=== PATIENT | male | born 1965 | race Caucasian/White ===

== ENCOUNTER 2025-05-06 18:57 | Inpatient (IN) | payer OTHER, SELFPAY ==
[2025-05-06 14:56] VITALS: BP 128/102
[2025-05-06 14:58] VITALS: BP 128/102
[2025-05-06 15:00] VITALS: BP 127/88
[2025-05-06 15:13] LABS: % Basophils 0.5 % (0-2); % Eosinophils 5.6 % (0-6); % Immature Granulocytes 0.3 % (0-0.5); % Lymphocytes 21.6 % (20.5-51.1); % Monocytes 8.2 % (1.7-9.3); % Neutrophils 63.8 % (42.2-75.2); Absolute Eosinophils 0.4 10^3/uL (0-0.7); Absolute Lymphocytes 1.3 10^3/uL (1.2-3.4); Absolute Monocytes 0.5 10^3/uL (0.1-0.6); Hematocrit 47.6 % (39.0-52.0); Mean Corp Hgb Conc. 33.6 g/dL (33.0-37.0); Mean Corpuscular Hgb 29.5 pg (27.0-31.0); Mean Corpuscular Volume 87.8 fL (80.0-94.0); Mean Platelet Volume 8.5 fL (7.4-10.4); Nucleated Red Blood Cells % 0 % (-); Platelet Count 204 10^3/uL (130-400); Red Blood Cell Count 5.42 10^6/uL (4.70-6.10); Red Cell Dist. Width 12.9 % (11.5-14.5); White Blood Cell Count 6.2 10^3/uL (4.8-10.8)
[2025-05-06 15:26] LABS: ALT (SGPT) 35 U/L (0-50); AST (SGOT) 30 U/L (17-59); Albumin 4.4 g/dl (3.5-5.0); Alkaline Phosphatase 56 U/L (38-126); Blood Urea Nitrogen 13 mg/dl (9-20); Calcium 9.6 mg/dl (8.4-10.2); Carbon Dioxide 27 mmol/L (22-30); Chloride 108 mmol/L (98-107); Glucose 86 mg/dl (70-99); Potassium 4.7 mmol/L (3.5-5.1); Sodium 140 mmol/L (135-145); eGFR > 60.00
[2025-05-06 16:00] VITALS: BP 124/87
--- NOTE | 2025-05-06 16:59 | ED.GENMED ---
History of Present Illness
General
Chief Complaint: Bowel Problem
Source: spouse
Exam Limitations: dementia
Time Seen by Provider: 05/06/25 15:17
Nursing documentation reviewed up to this point in time: agreed with
History of Present Illness
History of Present Illness:
The patient is a 6-year-old man with past medical history of early Alzheimer's dementia brought in by his for rectal bleed. His reports that he has a history of Crohn disease and generally has a loose bowel movement each and every day.
She reports that over the last 4 days, he has had no bowel movement. She reports occasionally he has been holding his abdomen to indicate he has abdominal pain but it has been difficult for her to fully assess him due to his dementia. She reports
that earlier today, he filled the toilet with bright red blood and when she wiped him, there was blood on the toilet tissue. She reports this is never happened before. The only changes that she notes is that he was recently started on psychiatric
medication to control his agitation. She denies fever, vomiting and recent travel history.
Past History
Past History
ED Past Medical History: Other (Early onset dementia, Crohn's disease)
ED Past Surgical History: Bowel resection
Social History
Tobacco: Non-smoker
Alcohol: Occasional
Drug: None
Personal:
Living: with family
Employment: Other
Family History
Family History: Other
Review of Systems
Review of Systems
Allergies reviewed?: Yes
Unable to obtain full review of systems at this time due to: dementia
Other source history: family
All Other Systems: Not applicable
ABD/GI: Reports constipated and other (Rectal bleed)
Phy Exam
Physical Exam
Physical Exam:
Physical Exam
General: no apparent distress, not acutely ill
Neck: supple. no meningeal signs. normal psoterior pharynx
Heart: s1/s2 regular rate and rhythm, no murmur. equal radial pulses.
Lungs: no acute respiratory distress. clear bilaterally
Abdomen: normal bowel sounds. not tender. no CVAT . Small amount of active bright red rectal bleed. No sign of external hemorrhoid
Neuro: alert, nonfocal
Skin: no rash
Psychiatric: well kept. Barely interactive, cooperative
Extremities: no edema. no calf tenderness. negative homans. good distal pulses
Course
Orders/Labs/Results
Orders:
Orders
05/06/25 15:05
Type+Screen Urgent
Complete Blood Count/With Diff Urgent
Comprehensive Metabolic Panel Urgent
05/06/25 16:12
CT Abd/pelvis W Iv Cont Urgent
Comment:
Reason For Exam: rectal bleed, constipation, chrons
05/06/25 17:08
ABO2 Routine
BBK Wristband Number:
Associate notified that ABO2 has been ordered: Y
Date: 05/06/25
Time: 15:24
Canvas Repairer ID: [id number]
Abnormal Lab Results
05/06/25
15:05
Chloride 108 H mmol/L
(98-107)
Total Bilirubin 3.0 H mg/dl
(0.2-1.3)
05/06/25 15:05
05/06/25 15:05
Vital Signs
Initial and Last Documented VS:
Initial Vital Signs
Temp Pulse Resp BP Pulse Ox
98.2 F 60 20 128/102 98
05/06/25 14:56 05/06/25 14:56 05/06/25 14:56 05/06/25 14:56 05/06/25 14:56
Last Documented Vital Signs
Temp Pulse Resp BP Pulse Ox
98.2 F 55 12 124/87 96
05/06/25 14:56 05/06/25 16:15 05/06/25 16:00 05/06/25 16:00 05/06/25 16:15
MDM/Problems Addressed
Differential Diagnosis Includes:
Acute diverticulitis, acute flare of Crohn's, internal hemorrhoid, external hemorrhoid, AV malformation
MDM/Problems Addressed:
Patient presents with acute constipation and rectal bleed
Chronic conditions affecting care:
Crohn's disease
Acute Exacerbation and/or Progression of Chronic Illness:
Patient may have acute flare of chronic Crohn's
*Radiology
Radiology exam reviewed: radiology read reviewed
*Pulse Oximetry
Patient hypoxic: no
Comment: 98% on room air
*EKG
Interpreted by ED Provider?: NA
*Recreational Programs Director Interpretation
Rate: Recreational Programs Director- N/A
*Critical Care Note
Total Time (30-74mins, 75-104mins- exclusive of procedures): Not Applicable
Data Reviewed
Review of Other/Old Records Reveals: Progress Notes (Speech therapy note reviewed from 2020 which indicates that patient at that time had mild cognitive impairment)
Source: spouse
Patient Management
Social determinants of health affecting care: Living situation and Strong social support
Discussion with other providers: Hospitalist and Other (CT report and case discussed with Dr. Paredes from GI)
Escalation/DeEscalation of care consider admission/obs:
Patient is hemodynamically stable. Patient's expresses that she is very hesitant to take him home given his severe dementia and ongoing rectal bleeding. I feel is important therefore, for patient to have a diagnostic and therapeutic workup in
the hospital. reports it is extremely challenging to get him to outpatient appointments
ED Attending Note
-
Portions of this chart may have been created with voice recognition software.� Occasional wrong word or��sound alike� substitutions may have occurred due to the inherent limitations of voice recognition software.
Discharge Plan
Departure
Patient Disposition: Admit
Date of Disposition: 05/06/25
Time of Disposition: 18:00
Admit to: Med/Surg
Presentation/result/management discussed w/ accepting MD/DO: Hospitalist
Patient with high blood pressure during this ER visit?: No
Condition: Good
Discharge Problem:
Bright red rectal bleeding
Referrals:
Carolyn Patrick PA-C [Family Provider, Family Practice]
Interventions
Interventions:
*Risk Screen - Suicide Last Done: 05/06/25 15:28
*General Assessment Last Done: 05/06/25 15:28
*Neglect/Abuse Screening Last Done: 05/06/25 15:28
*ED- Fall Risk Assessment Last Done: 05/06/25 15:28
*ED COVID-19 Vaccine History Last Done: 05/06/25 15:28
XS-Aqmrql-Nfezqluilz Assessment Last Done: 05/06/25 15:28
Discharge Date and Time
Print Language: SAO TOMEAN
[2025-05-06 17:10] VITALS: BP 124/88
--- NOTE | 2025-05-06 18:19 | HPS.HSE ---
Family Physician
-
Family Physician: Carolyn Patrick
Chief Complaint
-
rectal bleeding
History of Present Illness
60-year-old male past medical history of Alzheimer's dementia, Crohn's disease presenting with rectal bleeding. His reports she has a history of Crohn's disease and takes cholestyramine for loose stools.
A few days ago he had severe watery diarrhea. This was followed by several days of constipation and minimal stool. Today he had moderate amount of bleeding without stool from the rectum filling the toilet bowl and on the toilet paper. He did
complain of some abdominal pain although difficult to tell due to dementia. No fevers or chills. No nausea or vomiting.
.
He has a history of Crohn's disease involving distal small bowel diagnosed in his 20s complicated by bowel perforation status post bowel resection. He has not had any flareups since that time. Never required medication afterward.
Follows [facility] in [place].
Was recently started on SSRI to control his agitation. Denies fevers or vomiting or recent travel history.
No family history of Crohn's disease.
Medical History
Past Medical History
Past Medical History: Reports Other (Alzheimer's dementia, Crohn's disease )
Past Surgical History: Reports Other (bowel resection )
Social History
Tobacco: Non-smoker
Alcohol: None
Drug: None
Family History
Family History: Not pertinent
Allergies / Home Medications
Allergies reflects when Allergies were last updated in [employer].
Home Medications with original date entered in [employer]
Allergy/Medication List:
Allergies
Allergy/AdvReac Type Severity Reaction Status Date / Time
No Known Allergies Allergy Verified 05/06/25 14:56
Review of Systems
-
History Source: Patient
A 12 point ROS was completed and negative except as noted: Yes
Constitutional: Reports No Symptoms
EENT: Reports No Symptoms
Respiratory: Reports No Symptoms
Cardiac: Reports No Symptoms
Abdomen/GI: Reports See HPI
: Reports No Symptoms
Musculoskeletal: Reports No Symptoms
Skin: Reports No Symptoms
Neurological: Reports No Symptoms
Endocrine: Reports No Symptoms
Hematologic/Lymphatic: Reports No Symptoms
Psych: Reports No Symptoms
Physical Exam
Vital Signs
Vital Signs
Temp Pulse Resp BP Pulse Ox
98.2 F 55 12 124/87 96
05/06/25 14:56 05/06/25 16:15 05/06/25 16:00 05/06/25 16:00 05/06/25 16:15
Physical Exam
General: Well Developed, Well Nourished and No Apparent Distress
HEENT: NormoCephalic, Moist mucous membranes and Atraumatic
Respiratory: Clear
Cardiac: S1/S2 and Regular Rhythm; No Murmur or Rub
GI: Soft, Non Tender, Non Distended and Normal Bowel Sounds; No Organomegaly
Rectal: Deferred by Provider
Musculoskeletal: No Clubbing, No Cyanosis and No Edema
Skin: No Rash
Neuro: Nonfocal/grossly intact
Laboratory Results
-
05/06/25 15:05
05/06/25 15:05
Laboratory Results
Total Bilirubin 3.0 mg/dl (0.2-1.3) H 05/06/25 15:05
AST 30 U/L (17-59) 05/06/25 15:05
ALT 35 U/L (0-50) 05/06/25 15:05
Alkaline Phosphatase 56 U/L (38-126) 05/06/25 15:05
Data Reviewed
-
Lab Data: Labs Reviewed by me
Old Records: Reviewed
Impression/Plan
-
IMPRESSION:
PLAN:
# Rectal bleeding secondary to Crohn's flare/stercoral colitis
# Crohn's disease complicated by bowel perforation status post bowel resection
- CT abdomen pelvis shows large volume rectal stool, mildly distending the rectum, concern for mild stercoral colitis, cannot exclude some mild thickening of the wall of the distal ileum
- N.p.o.
- IV fluids
-Stool studies if able
- GI consulted and recommending MiraLAX to treat constipation/stercoral colitis
- Normally takes cholestyramine, hold for now
Alzheimer's dementia
- Continue SSRI
DNR/DNI
DVT prophylaxis�SCDs
N.p.o.
[2025-05-06 19:46] VITALS: BMI 25.0
--- NOTE | 2025-05-06 20:00 | PTCARENOTE ---
Pt transported from ED to 3W via stretcher. Pt independent from stretcher to bed. AAOX1 (pt has Alzheimer's), very confused/agitated @ times, vitals stable. Pt @ bedside answering all admission questions as pt unable, oriented to room, call
bassett within reach.
[2025-05-06 20:05] VITALS: BP 129/76
[2025-05-06] MEDS: NSS 1000 IV (20:30)
[2025-05-06] MEDS: NAMENDA 10 MG PO (20:30)
[2025-05-06] MEDS: ARICEPT 10 MG PO (21:33)
[2025-05-06] MEDS: SEROQUEL 50 MG PO (21:33)
--- NOTE | 2025-05-06 23:45 | PTCARENOTE ---
Sagar fan called at 2305 d/t patient getting up out of bed and trying to run out of the room. Pt w, HX of alzheimers and very confused/agitated. Staff tried redirecting pt back to bed, which only led to pt becoming more increasingly agitated. At
this point pt was unable to be redirected and it took several staff to get pt back into bed, ultimately leading to pt being restrained for his own safety as well safety of staff. BEHAVIOR CLINICIAN ordered zyprexa 5mg IM, pt ultimately calmed down after a few hours
post IM administration.
[2025-05-07] VITALS (9 sets, daily range): BP systolic 99–129; BP diastolic 65–84
[2025-05-07] MEDS: ZYPREXA 5 MG IM (00:06)
[2025-05-07] MEDS: STERILE WATER FOR INJECTION 2.1 ML IM (00:07)
--- NOTE | 2025-05-07 00:38 | W.PN.UPDATE ---
Update Note
Progress Note Update
2329 code purple was called on pt for attempting to elope unit and being aggressive with staff when tried to place back in room.
pt has already received seroquel, namenda, aricept at 2119 which had not worked.
Placed in 4 pt restaints and im zyprexa ordered.
[2025-05-07 06:22] LABS: % Basophils 0.5 % (0-2); % Eosinophils 3.7 % (0-6); % Immature Granulocytes 0.5 % (0-0.5); % Lymphocytes 13.9 % (20.5-51.1); % Monocytes 6.9 % (1.7-9.3); % Neutrophils 74.5 % (42.2-75.2); Absolute Eosinophils 0.3 10^3/uL (0-0.7); Absolute Lymphocytes 1.2 10^3/uL (1.2-3.4); Absolute Monocytes 0.6 10^3/uL (0.1-0.6); Absolute Neutrophils 6.6 10^3/uL (1.4-6.5); Hematocrit 43.6 % (39.0-52.0); Hemoglobin 14.8 g/dL (13.0-18.0); Mean Corp Hgb Conc. 33.9 g/dL (33.0-37.0); Mean Corpuscular Hgb 29.5 pg (27.0-31.0); Mean Platelet Volume 9.1 fL (7.4-10.4); Nucleated Red Blood Cells % 0 % (-); Platelet Count 206 10^3/uL (130-400); Red Blood Cell Count 5.01 10^6/uL (4.70-6.10); Red Cell Dist. Width 12.7 % (11.5-14.5); White Blood Cell Count 8.8 10^3/uL (4.8-10.8)
[2025-05-07 06:50] LABS: ALT (SGPT) 31 U/L (0-50); AST (SGOT) 31 U/L (17-59); Alkaline Phosphatase 68 U/L (38-126); Blood Urea Nitrogen 10 mg/dl (9-20); Calcium 9.2 mg/dl (8.4-10.2); Carbon Dioxide 26 mmol/L (22-30); Chloride 106 mmol/L (98-107); Estimated Creatinine Clearance 111 ml/min; Glucose 92 mg/dl (70-99); Potassium 3.7 mmol/L (3.5-5.1); Sodium 139 mmol/L (135-145); Total Bilirubin 3.1 mg/dl (0.2-1.3); Total Protein 6.2 g/dl (6.3-8.2); eGFR > 60.00
--- NOTE | 2025-05-07 08:54 | CON.MD ---
Consultation - Medical
-
see dictated note
pt with severe dementia- can answer no questions
per - no known gu hx or surgery- has had cath's before with abd procedures
generally voids infrequently and recently more incontinent
admitted with rectal bleeding/hx of crohns
admit CT showed sig bladder distention last pm
has not been able to void- attempts at straight cath unsuccessful
at bedside- i was not able to place kim- required multiple assistants to restrain/ unsure of nature of obstruction
i spoke to - at this point would require OR for cysto- possible sp tube
risks reviewed- including high risks of post op pulling out of kim based on his cognition
she would like to proceed at this time
discussed with hospitalist service
Consultation
-
Date/Time Consultation Requested: 05/07/25 at 8am
Date/Time Consultation Performed: 05/07/25 at 8:30am
Requesting Provider: dr soriano
Performing Provider: dr diez
Reason for Consultation: urinary retention
[2025-05-07] MEDS: NSS IV (08:57)
[2025-05-07] MEDS: NAMENDA PO (08:59)
--- NOTE | 2025-05-07 10:36 | PTCARENOTE ---
Pt. with no urination overnight. Bladder scanned this AM for 966 in his bladder. 3 nurses attempted to straight cath pt. but were unsuccessful each time. MD notified. Urology consulted. Urology cart at bedside. Urology at bedside attempted to place
catheter twice. This nurse and tech held pt. down due to resistance from pt. Urology unable to place catheter. MD to call to discuss plan. Will continue with ongoing plan of care.
--- NOTE | 2025-05-07 10:54 | W.PN.HOSP.TC ---
Today's Communication/Plan
-
enema x 1 now
NPO for OR
fluids stopped given retention
Urology consult appreciated
GI consult
Psychiatry consult
Assessment / Plan
Assessment / Plan
60-year-old male past medical history of Alzheimer's dementia, Crohn's disease presenting with rectal bleeding. His reports she has a history of Crohn's disease and takes cholestyramine for loose stools.
CT A/P
IMPRESSION:
Large volume rectal stool, mildly distending the rectum. Concern for mild stercoral colitis.
Small bilateral fat only containing inguinal hernias, left larger than right.
Prior right sided intestinal surgery, nonobstructed. Cannot exclude some mild thickening of the wall of the distal ileum such as Inflammatory bowel disease , just proximal to the anastomosis.
Bilateral renal simple cysts. Retrograde renal excretion.
Cholelithiasis.
PLAN:
# Rectal bleeding secondary to Crohn's flare/stercoral colitis
# Crohn's disease complicated by bowel perforation status post bowel resection
- CT abdomen pelvis shows large volume rectal stool, mildly distending the rectum, concern for mild stercoral colitis, cannot exclude some mild thickening of the wall of the distal ileum
- NPO
- s/p Miralax with multiple BM this AM per RN but will order enema as likely remains constipated and contributing to urinary retention (see below)
- Stool studies if able
- GI consult
Urinary Retention
-unsuccessful attempt x 3 for straight cath, seen by Urology and unable to place catheter at bedside, plan is for OR later today
-treat constipation as above
Alzheimer's dementia
- Continue SSRI
- seroquel hs - has been on for a while
- Psychiatry consult to help guide management with regimen in setting of urinary retention; also will need to control agitation so does not rip out kim once placed
DNR/DNI
DVT prophylaxis�SCDs
N.p.o.
Anticipated Discharge: > 48 hours
Subjective/Interval History
-
Date of Service: May 07, 2025
patient seen with at bedside
Objective Data
-
Labs:
Laboratory Results
05/07/25
05:36
WBC 8.8
Hgb 14.8
Hct 43.6
Plt Count 206
Sodium 139
Potassium 3.7
Chloride 106
Carbon Dioxide 26
BUN 10
Creatinine 0.8
Glucose 92
Calcium 9.2
Total Bilirubin 3.1 H
AST 31
ALT 31
Alkaline Phosphatase 68
Vital Signs:
Vital Signs
Temp Pulse Resp BP Pulse Ox
97.8 F 67 17 129/83 98
05/07/25 07:29 05/07/25 07:29 05/07/25 07:29 05/07/25 07:29 05/07/25 10:24
I&O
05/06/25 05/07/25 05/08/25
06:59 06:59 06:59
Intake Total 120 / 120
Balance 120 / 120
Review of Systems
-
History Source: Patient
All other systems: Reviewed and negative
Physical Exam
-
General: No Apparent Distress and Other (calm has restraints on )
Respiratory: Clear to Auscultation; Negative Wheezes
Cardiac: Regular Rhythm and S1/S2
GI: Soft and Nontender
Musculoskeletal: No Edema
Skin: Warm and Dry; Negative Rash
Neuro: AO x 3
Psych: Calm
Data Reviewed
-
Diagnostic Radiology: Report Reviewed by me
Labs: Labs Reviewed by me
--- NOTE | 2025-05-07 13:24 | W.IMMPOSTOP ---
Surgical Immed Post Op Note
-
Primary Surgeon:
rg
Assisting Surgeon:
Pre-op Diagnosis:
retention/constipation
Post-op Diagnosis:
same
Procedure Performed:
cysto/kim placement/dis-impaction
Anesthesia Type:
gen
Specimen / Cultures:
ucx
Estimated Blood Loss:
1cc
Complications:
none
Operative Findings:
mildly elevated bladder neck- but asleep- kim went right in- drainaed 1.2 liters of urine
also sig impacted on rectal- no mass or blood- able to remove about a baseball sized amount of thick/sticky stool- but clearly more aboe my reach
to pacu in stable condition
NEED TO TAKE ALL PRECAUTIONS TO PREVENT KIM PULL
start flomax
maximize gi regimen
will determine timing of TOV
[2025-05-07] MEDS: FLOMAX 0.8 MG PO (14:45)
--- NOTE | 2025-05-07 14:58 | W.PN.UPDATE ---
Update Note
Progress Note Update
60 yr old M w/ PMH of Alzheimer's dementia & Crohn's Dz (complicated by hx of bowel perforation s/p bowel resection) who presented with rectal bleeding and urinary retention. Psychiatry consulted for help with guiding medication management as pt
scheduled for kim placement today and is at significant risk for agitation and potential of ripping out kim once placed.
As per chart, pt with significant dementia and not able to participate in meaningful interviews - was unable to attempt to interview pt today as he was scheduled for procedure, including kim placement & fecal disimpaction, and was out of room.
Given his baseline cognitive function and post-anesthetia effects on cognition in pts with progressed dementia pt likely to be even more limited in his ability to communicate following procedure, so will return tomorrow to attempt to interview.
As per hx, pt was recently started on sertraline 100mg & seroquel 50mg hs to help manage agitation, as well as possibly rexulti. Overnight code purple was called as pt attempted to elope and was aggressive with staff, required 4 pt restraints and IM
olanzapine.
Given risk of worsening agitation post-operatively would make pre-emptive psychotropic adjustments so as to minimize this risk, in particular as pt also at risk of ripping out kim.
Lowering sertraline to 50mg for now as SSRI can be activating and potentially worsen agitation in setting of dementia/delirium
Hold seroquel for now - will start olanzapine 2.5mg BID as this helped manage agitation overnight, as well as 2.5mg BIDPRN acute agitation
Will return tomorrow to re-assess
[2025-05-07] MEDS: ZOLOFT 50 MG PO (15:13)
--- NOTE | 2025-05-07 16:21 | CON.GI ---
Consultation
-
Date/Time Consultation Requested: 05/07/25
Date/Time Consultation Performed: 05/07/25
Requesting Provider:
Performing Provider:
Reason for Consultation: diarrhea with some bright red blood with wiping
Medical History
Chief Complaint / HPI
Chief Complaint: diarrhea and wipe type bleeding
History of Present Illness:
60-year-old male with history of early onset dementia, history of Crohn's disease presented with complaints of diarrhea and some wipe type bleeding. Patient is not able to give history, history was obtained from .
As per , patient has history of Crohn's disease since he was in his mid 20s. He had perforation of the bowel, she cannot recall if it is a small or large bowel but it appears that he had resection of the right colon and distal small bowel,
unclear the length of the resection. He was on sulfasalazine up until 2004 but then stopped. He has been on cholestyramine 3 packets a day to control diarrhea since, he follows up with Dr. [facility] for colonoscopies. Last
colonoscopy 5 years ago unremarkable as per patient's . He has not been on any medications for his Crohn's since 2004 and has not had any other resections or flareups or hospital admissions. No steroid use.
His previous bowel pattern was 1-2 bowel movements a day on the cholestyramine, in the last 2 months, he has been having 1 bowel movement every other day and more formed stool. Since , he has has had more constipation where he would
skip days without having bowel movement, may have formed stool every other day. As per , she cut back on the cholestyramine to 2 packets a day after the constipation episode and this was only on Thursday, last . After that he has been
having small looser stool and had an accident in the adult daycare. He has not had a bowel movement since last .
In the ER, CBC was within normal limits.
CMP showed elevated total bilirubin at 3.1, other LFTs normal.
CT scan of the abdomen pelvis with IV contrast only, gallstones seen, no biliary ductal dilation, liver top normal, pancreas normal. History of right-sided intestinal resection at least involving the distal ileum and portion of the cecum, some mild
thickening of the wall of the distal ileum proximal to the anastomosis cannot be excluded. Some fluid in the residual right-colored colon and distal ileum. Large volume of stool filling and distending the rectum, cannot exclude mild rectal wall
thickening. Incomplete distention and incompletely opacified urinary bladder.
He was started on Zoloft recently.
No urine output noted since admission, Neves catheter could not be placed bedside as patient was combative, so we had to go to the operating room and have the Neves catheter placed under anesthesia in the OR, significant rectal impaction noted, no
mass or blood, a baseball sized amount of sticky stool removed.
Past Medical History
Past Medical History: Other (crohns ds-unclear if small bowel or colon, early onset dementia)
Past Surgical History: Bowel Resection
Social History
Tobacco: Non-Smoker
Alcohol: Occasional
Family History
Family History: Reviewed & Not Pertinent
Allergies / Home Medications
Allergy/AdvReac Type Severity Reaction Status Date / Time
No Known Allergies Allergy Verified 05/06/25 14:56
�Medication �Instructions �Recorded
brexpiprazole 4 mg tablet (Rexulti) 4 mg PO DAILY (Atypical) 05/06/25
Antipsychotic
cholestyramine 4 gram oral powder 4 g PO DAILY Gastrointestinal Issue 05/06/25
donepezil 10 mg tablet 10 mg PO HS Mental Health/Anxiety 05/06/25
memantine 10 mg tablet 10 mg PO BID Mental Health/Anxiety 05/06/25
quetiapine 50 mg tablet 50 mg PO HS Mental Health/Anxiety 05/06/25
sertraline 100 mg tablet 100 mg PO DAILY Mental 05/06/25
Health/Anxiety
Review of Systems
-
All other systems: A 12 pt ROS was Negative except as stated above in HPI
Vital Signs
Temp Pulse Resp BP Pulse Ox
98.1 F 57 17 109/71 97
05/07/25 14:50 05/07/25 14:50 05/07/25 14:50 05/07/25 14:50 05/07/25 14:50
Physical Exam
Exam
Cardiac: S1/S2
GI: Soft, Non Tender and Non Distended
Results
WBC 8.8 10^3/uL (4.8-10.8) 05/07/25 05:36
Hgb 14.8 g/dL (13.0-18.0) 05/07/25 05:36
Hct 43.6 % (39.0-52.0) 05/07/25 05:36
MCV 87.0 fL (80.0-94.0) 05/07/25 05:36
Plt Count 206 10^3/uL (130-400) 05/07/25 05:36
Absolute Neuts (auto) 6.6 10^3/uL (1.4-6.5) H 05/07/25 05:36
Sodium 139 mmol/L (135-145) 05/07/25 05:36
Potassium 3.7 mmol/L (3.5-5.1) 05/07/25 05:36
Chloride 106 mmol/L (98-107) 05/07/25 05:36
Carbon Dioxide 26 mmol/L (22-30) 05/07/25 05:36
BUN 10 mg/dl (9-20) 05/07/25 05:36
Creatinine 0.8 mg/dL (0.7-1.3) 05/07/25 05:36
Calcium 9.2 mg/dl (8.4-10.2) 05/07/25 05:36
Total Bilirubin 3.1 mg/dl (0.2-1.3) H 05/07/25 05:36
AST 31 U/L (17-59) 05/07/25 05:36
ALT 31 U/L (0-50) 05/07/25 05:36
Alkaline Phosphatase 68 U/L (38-126) 05/07/25 05:36
Diagnostic Image Results:
Prior GI Procedures:
EGD:
Colonoscopy:
Assessment / Plan
-
60-year-old male with history of Crohn's disease uncertain location but polyp in the right colon and distal small bowel removed, currently not maintained on any medication, follows up with Dr. Hassan at [facility] presenting with constipation and blood
type bleeding.
CT scan showing large amount of stool in the rectum suggesting constipation and possible stercoral colitis.
- Constipation, blood type rectal bleeding with stercoral colitis
Significant disimpaction done in the OR by Dr. Goldman during Neves catheter placement, large amount of sticky stool noted without blood.
Milk of molasses enema given by RN after the procedure. Loose liquid stool without blood noted.
Continue MiraLAX 17 g twice a day, will add 2 Senokot tablets daily to the regimen.
If no bowel movements, will give another their enema tomorrow morning and magnesium citrate 300 mL to clear out the colon.
Hold off on the cholestyramine as it will cause constipation. Based on his bowel movements after he is completely cleared out, need to titrate cholestyramine dose.
Likely cause of rectal bleeding could be related to local stercoral colitis versus hemorrhoids as patient does report hemorrhoids noted on previous colonoscopy but no further bleeding since admission.
- Crohn's disease uncertain location
Will get records from Dr. Hassan's office and as per , no evidence of active Crohn's on colonoscopy 2019. Currently not on any medication.
- Elevated total bilirubin with other LFTs being normal, will check direct bilirubin.
Continue to follow-up with Dr. Hassan as an outpatient for his Crohn's disease.
-
-
Thank you for consultation and allowing me to participate in the patient's care. Please call the talent acquisition director GI physician during the after hours with any questions or concerns.
[2025-05-07 17:07] LABS: Direct Bilirubin 0.2 mg/dl (0.0-0.4)
[2025-05-07] MEDS: NSS 1000 IV (21:56)
[2025-05-07] MEDS: ZYPREXA 2.5 MG PO (21:56)
[2025-05-07] MEDS: MIRALAX 17 GRAMS PO (21:56)
[2025-05-07] MEDS: NAMENDA 10 MG PO (21:56)
[2025-05-07] MEDS: ARICEPT 10 MG PO (21:58)
[2025-05-08 06:49] LABS: % Basophils 0.3 % (0-2); % Eosinophils 2.5 % (0-6); % Immature Granulocytes 0.6 % (0-0.5); % Lymphocytes 18.1 % (20.5-51.1); % Neutrophils 69.5 % (42.2-75.2); Absolute Eosinophils 0.2 10^3/uL (0-0.7); Absolute Immature Granulocytes 0.1 10^3/uL (0-0.05); Absolute Lymphocytes 1.6 10^3/uL (1.2-3.4); Absolute Monocytes 0.8 10^3/uL (0.1-0.6); Mean Corp Hgb Conc. 34.1 g/dL (33.0-37.0); Mean Corpuscular Volume 84.9 fL (80.0-94.0); Mean Platelet Volume 9.8 fL (7.4-10.4); Nucleated Red Blood Cells % 0 % (-); Platelet Count 156 10^3/uL (130-400); Red Blood Cell Count 5.18 10^6/uL (4.70-6.10); Red Cell Dist. Width 12.8 % (11.5-14.5); White Blood Cell Count 8.7 10^3/uL (4.8-10.8)
--- NOTE | 2025-05-08 06:58 | W.PN.URO.CBU ---
Today's Communication / Plan
-
continue kim- precautions to prevent pull
continue flomax 0.8mg
continue bowel regimen- although this is improved
plan to remove kim for TOV on THU evening
Assessment / Plan
-
Urinary retention- multifactorial- prob meds/constipation and mild BPH
kim difficulty was not anatomic- asleep cath placed easily
very difficult situation due to pt's dementia
would rec continuation of flomax and bowel regimen- psych managing meds
would plan to remove kim on thu afternoon to observe for full TOV and hopefully pt will be able to empty adequately
Diagnosis
-
Date of Service: May 08, 2025
-
Patient Diagnosis:
dementia
constipation
urinary retention with difficult kim due to pt's level of cooperation s/pp OR cysto/kim placement
Subjective
-
pt very confused this am- trying to get UOOB
kim in place- urine narcisa
did by report have large BM early this am- not bloody
on flomax
Objective
-
Vital Signs
Temp Pulse Resp BP Pulse Ox
98 F 72 14 116/77 96
05/07/25 23:03 05/07/25 23:03 05/07/25 23:03 05/07/25 23:03 05/07/25 23:03
Intake and Output
05/06/25 05/07/25 05/08/25
06:59 06:59 06:59
Intake Total 120 / 120 300 / 300
Output Total 1500 / 1500
Balance 120 / 120 -1200 / -1200
Intake:
Oral fluids 120 / 120
IV fluids (Total) 300 / 300
Normosol 300 / 300
Output:
Urine, Kim 1500 / 1500
Laboratory Results
05/08/25 06:00
Review of Systems
-
Unable to obtain full review of systems at this time due to: Dementia
Physical Exam
-
General - confused
Abdomen - soft, non-tender
Genitalia - normal- kim in place
[2025-05-08 06:59] LABS: Blood Urea Nitrogen 9 mg/dl (9-20); Calcium 9.1 mg/dl (8.4-10.2); Carbon Dioxide 24 mmol/L (22-30); Chloride 108 mmol/L (98-107); Estimated Creatinine Clearance 111 ml/min; Glucose 98 mg/dl (70-99); Potassium 4.4 mmol/L (3.5-5.1); Sodium 138 mmol/L (135-145); eGFR > 60.00
[2025-05-08 07:05] VITALS: BP 128/75
[2025-05-08] MEDS: ZYPREXA 2.5 MG PO ×3 (08:12→22:53)
[2025-05-08] MEDS: FLOMAX 0.8 MG PO (08:12)
[2025-05-08] MEDS: ZOLOFT 50 MG PO (08:12)
[2025-05-08] MEDS: NAMENDA 10 MG PO ×2 (08:12→20:17)
[2025-05-08] MEDS: MIRALAX 17 GRAMS PO ×2 (08:12→20:17)
--- NOTE | 2025-05-08 11:33 | CM ---
Patient seen at bedside
IA completed - obtained by Ely
Dx: chron's flare, stercoral colitis
past medical history of Alzheimer's dementia, Crohn's disease presenting with rectal bleeding
s/p Cystoscopy, Neves placement, and rectal disimpaction
Patient lives with in a 2 story home, 2 steps to enter, flight to bedroom/full bath, powder room on 1st floor
PLOF: ambulates with assistive device, needs assistance with bathing, toileting, dressing, recent prompts to for feeding
Denies DME
Patient states that the patient was to start Adult day care today at [facility]-stated that he was going to trial 9am-3pm and that she was going to transport him - stated she works from home.
Patient also stated has been in the process of working with [facility] for private cg assistance
Denies VN/Denies Rehab
PCP: Carolyn Patrick
Pharmacy: [facility]
PLAN: TBD, CM to follow hospital progress for needs
--- NOTE | 2025-05-08 13:05 | W.PN.HOSP.TC ---
Today's Communication/Plan
-
Assessment / Plan
Assessment / Plan
General: No Apparent Distress, Comfortable
HEENT: NormoCephalic, Moist mucous membranes, Atraumatic
Respiratory: Clear and Non Labored Respirations
Cardiac: S1/S2 and Regular Rhythm; No Rub or Gallop
GI: Soft, Non Tender, Non Distended and Normal Bowel Sounds
Musculoskeletal: No Edema, no deformity
: Kim in place draining clear yellow urine
Neuro: Somnolent but arousable, disoriented
Psych: Calm, lacks insight, currently without agitation
60-year-old male past medical history of Alzheimer's dementia, Crohn's disease presenting with rectal bleeding. His reports she has a history of Crohn's disease and takes cholestyramine for loose stools.
CT A/P
IMPRESSION:
Large volume rectal stool, mildly distending the rectum. Concern for mild stercoral colitis.
Small bilateral fat only containing inguinal hernias, left larger than right.
Prior right sided intestinal surgery, nonobstructed. Cannot exclude some mild thickening of the wall of the distal ileum such as Inflammatory bowel disease , just proximal to the anastomosis.
Bilateral renal simple cysts. Retrograde renal excretion.
Cholelithiasis.
PLAN:
# Rectal bleeding secondary to Crohn's flare/stercoral colitis
# Crohn's disease complicated by bowel perforation status post bowel resection
- CT abdomen pelvis shows large volume rectal stool, mildly distending the rectum, concern for mild stercoral colitis, cannot exclude some mild thickening of the wall of the distal ileum
- Manually disimpacted in the OR by Dr. Goldman (urology) during Kim catheter placement, enema given after procedure
- Continue bowel regimen, holding cholestyramine for now, clear liquid diet
- Appreciate further guidance from GI
Urinary Retention
-unsuccessful attempt x 3 for straight cath, seen by Urology and unable to place catheter at bedside, Kim was easily able to be placed in the OR once patient was calm
- Urinary retention likely exacerbated by severe constipation which has since been addressed
- Continue Flomax
- Plan for voiding trial Thursday morning, if unsuccessful will undergo TURP, not on blood thinners
Alzheimer's dementia
- Continue SSRI
- seroquel hs - has been on for a while, currently holding and started on scheduled olanzapine 2.5 mg twice daily with an additional 2.5 mg twice daily for acute agitation per psychiatry recommendations
- will need to control agitation so does not rip out kim
DNR/DNI
DVT prophylaxis�SCDs
Clear liquid diet
Anticipated Discharge: > 48 hours
Subjective/Interval History
-
Date of Service: May 08, 2025
Patient was seen and examined at bedside this morning. Resting comfortably with protective mittens on his hands. Kim draining clear yellow urine.
Objective Data
-
Labs:
Laboratory Results
05/08/25
06:00
WBC 8.7
Hgb 15.0
Hct 44.0
Plt Count 156 D
Sodium 138
Potassium 4.4
Chloride 108 H
Carbon Dioxide 24
BUN 9
Creatinine 0.8
Glucose 98
Calcium 9.1
Vital Signs:
Vital Signs
Temp Pulse Resp BP Pulse Ox
97.2 F 58 16 128/75 98
05/08/25 07:05 05/08/25 07:05 05/08/25 07:05 05/08/25 07:05 05/08/25 11:02
I&O
05/07/25 05/08/25 05/09/25
06:59 06:59 06:59
Intake Total 120 / 120 300 / 300
Output Total 1500 / 1500 750 / 750
Balance 120 / 120 -1200 / -1200 -750 / -750
Review of Systems
-
Unable to obtain full review of systems at this time due to: Dementia
Physical Exam
-
General: No Apparent Distress
--- NOTE | 2025-05-08 15:15 | W.PN.UPDATE ---
Update Note
Progress Note Update
Pt seen, chart reviewed, history from at bedside. Pt asleep, unable to provide hx due to dementia. Pt was started on Rexulti by outpatient Neurologist Dr Roberts, increased to 4 mg daily when agitation got worse. Pt also prescribed Zoloft 50
mg, though reports she did not machine operator picker the 50 mg dose. When pt's behavior worsened, Zoloft was also increased to 100 mg daily, although pt had not started this med. P developed diarrhea; reports due to hx of surgery for Crohn's dz, pt is
prone to diarrhea, was also not eating. Here Zoloft tapered to 50 mg daily, and placed on Zyprexa 2.5 mg BID for agitation. Pt was unable to void on admission, and catheter could not be inserted at the bedside. Pt was taken to surgery by Urology,
had no difficulty passing Neves catheter under sedation, 1.2 Liters of urine drained from bladder. Pt also found with large amount of rectal impacted stool, partially disimpacted under anesthesia. Pt calm this afternoon, sleeping, with hand mitts
in place, Neves catheter draining clear urine. Risks vs benefits of psychotropic agents reviewed with pt's , who indicated understanding.
Imp: Dementia with agitation, likely in part due to urinary retention, impacted stool. Currently calm on Zyprexa 2.5 mg BID
Rec: Keep doses low for Zoloft and Zyprexa due to risks including diarrhea on Zoloft and constipation/urinary retention on Zyprexa. Would continue Donepezil and Memantine
Will follow
[2025-05-08 15:22] VITALS: BP 113/74
[2025-05-08] MEDS: NSS IV (16:17)
--- NOTE | 2025-05-08 16:29 | PTCARENOTE ---
PT out of soft limb restraints and now in B/L mitts. Pt sleeping most of the day. Otherwise calm/cooperative. Not making attempts at kim or IV. Eating/drinking well with assistance. Several liquid bms this morning.
--- NOTE | 2025-05-08 19:06 | W.PN.GI.CBS2 ---
Today's Communication / Plan
-
- Constipation, wipe type rectal bleeding with stercoral colitis
05/07/25 Significant disimpaction done in the OR by Dr. Goldman during Neves catheter placement, large amount of sticky stool noted without blood.
Abdominal x-ray this morning showing mild fecal burden in the rectum and no significant fecal burden throughout the remainder of the colon, volume of stool appears to have improved compared to prior exam.
Patient had multiple formed stools after the enema and currently on MiraLAX 17 g twice a day, will add 2 Senokot tablets daily .
Hold off on the cholestyramine as it will cause constipation. Based on his bowel movements after he is completely cleared out, need to titrate cholestyramine dose.
Okay to advance to low residue diet, once colon is completely cleaned out, can stop the Senokot and MiraLAX to see if he continues to have loose stool. Cholestyramine should be added back cautiously based on his bowel pattern, only if there is
significant loose stool.
Likely cause of rectal bleeding could be related to local stercoral colitis versus hemorrhoids as patient does report hemorrhoids noted on previous colonoscopy but no further bleeding since admission.
- Crohn's disease uncertain location
Follow up with Dr. Hassan's office and as per , no evidence of active Crohn's on colonoscopy 2019. Currently not on any medication.
- Elevated total bilirubin with other LFTs being normal, majority indirect bilirubin suggesting Gilbert's.
Continue to follow-up with Dr. Hassan as an outpatient for his Crohn's disease.
Will sign off,pls call back if needed.
Assessment / Plan
-
60-year-old male with history of Crohn's disease uncertain location but polyp in the right colon and distal small bowel removed, currently not maintained on any medication, follows up with Dr. Hassan at [facility] presenting with constipation and blood
type bleeding.
CT scan showing large amount of stool in the rectum suggesting constipation and possible stercoral colitis.
- Constipation, wipe type rectal bleeding with stercoral colitis
05/07/25 Significant disimpaction done in the OR by Dr. Goldman during Neves catheter placement, large amount of sticky stool noted without blood.
Abdominal x-ray this morning showing mild fecal burden in the rectum and no significant fecal burden throughout the remainder of the colon, volume of stool appears to have improved compared to prior exam.
Patient had multiple formed stools after the enema and currently on MiraLAX 17 g twice a day, will add 2 Senokot tablets daily .
Hold off on the cholestyramine as it will cause constipation. Based on his bowel movements after he is completely cleared out, need to titrate cholestyramine dose.
Okay to advance to low residue diet, once colon is completely cleaned out, can stop the Senokot and MiraLAX to see if he continues to have loose stool. Cholestyramine should be added back cautiously based on his bowel pattern, only if there is
significant loose stool.
Likely cause of rectal bleeding could be related to local stercoral colitis versus hemorrhoids as patient does report hemorrhoids noted on previous colonoscopy but no further bleeding since admission.
- Crohn's disease uncertain location
Follow up with Dr. Hassan's office and as per , no evidence of active Crohn's on colonoscopy 2019. Currently not on any medication.
- Elevated total bilirubin with other LFTs being normal, majority indirect bilirubin suggesting Gilbert's.
Continue to follow-up with Dr. Hassan as an outpatient for his Crohn's disease.
Will sign off,pls call back if needed.
Subjective
Subjective
Date of Service: May 08, 2025
As per RN, multiple large formed stool overnight after the enema and currently on the MiraLAX, watery stool . No blood or black stool. Tolerating clear liquid diet.
Objective
Data Reviewed
Laboratory Data:
Laboratory Results
05/08/25 06:00
05/08/25 06:00
Laboratory Results
Total Bilirubin 3.1 mg/dl (0.2-1.3) H 05/07/25 05:36
AST 31 U/L (17-59) 05/07/25 05:36
ALT 31 U/L (0-50) 05/07/25 05:36
Alkaline Phosphatase 68 U/L (38-126) 05/07/25 05:36
Vital Signs and I&O:
Vital Signs
Temp Pulse Resp BP Pulse Ox
97.7 F 53 16 113/74 98
05/08/25 15:22 05/08/25 15:22 05/08/25 15:22 05/08/25 15:22 05/08/25 15:22
I&O
05/07/25 05/08/25 05/09/25
06:59 06:59 06:59
Intake Total 120 / 120 300 / 300 1840 / 1840
Output Total 1500 / 1500 1100 / 1100
Balance 120 / 120 -1200 / -1200 740 / 740
Physical Exam
Physical Exam
GI: Soft, Non Distended and Non Tender
[2025-05-08] MEDS: ARICEPT 10 MG PO (21:01)
[2025-05-08] MEDS: STERILE WATER FOR INJECTION 2.1 ML IM (21:28)
[2025-05-08] MEDS: ZYPREXA 2.5 MG IM (21:29)
--- NOTE | 2025-05-08 21:35 | PTCARENOTE ---
Pt became agitated, restless and anxious. Pt was attempting to leave. PRN Zyprexa IM give. Pt refusing to take anything oral at this time. B/L Mitts remain. Neves catheter intact.
[2025-05-08 23:24] VITALS: BP 133/73
--- NOTE | 2025-05-09 02:05 | W.PN.UPDATE ---
Update Note
Progress Note Update
7623 Pt recieved scheduled po zyprexa at 2016. Due to agitation received prn IM zyprexa 2129. Unfortunately this was ineffective and pt still attempting to get oob and elope and getting agitated. Additional 2.5mg po zyprexa ordered.
[2025-05-09 07:00] VITALS: BP 134/85
[2025-05-09] MEDS: ZOLOFT 50 MG PO (08:40)
[2025-05-09] MEDS: ZYPREXA 2.5 MG PO ×2 (08:40→20:29)
[2025-05-09] MEDS: MIRALAX 17 GRAMS PO (08:40)
[2025-05-09] MEDS: FLOMAX 0.8 MG PO (08:40)
[2025-05-09] MEDS: NAMENDA 10 MG PO ×2 (08:40→20:29)
--- NOTE | 2025-05-09 08:40 | W.PN.URO.CBU ---
Today's Communication / Plan
-
remove kim tomorrow for TOV
Assessment / Plan
-
Urinary retention- multifactorial- prob meds/constipation and mild BPH
kim difficulty was not anatomic- asleep cath placed easily
very difficult situation due to pt's dementia
VERY DIFFICULT SITUATION DUE TO PT'S DEMENTIA
there is no way a kim or even sp tube can be managed out outpt- and pt not a candidate for cic as he could not be cath'd at bedside
reviewed with med team and
kim removal tomorrow in hopes that with flomax/bowel decompression he will void
if not- plan would be for button TURP on with either ICU care or 1:1 nursing post op in hopes that we allow him to empty bladder/even if incontinent
if this failed- options are almost non-existent
Diagnosis
-
Date of Service: May 09, 2025
-
Patient Diagnosis:
dementia
constipation
urinary retention with difficult kim due to pt's level of cooperation s/pp OR cysto/kim placement
Subjective
-
pt asleep- required sedative due to attempt to get out of bed/leave hospital
kim in place- urine clear
on flomax
Objective
-
Vital Signs
Temp Pulse Resp BP Pulse Ox
98.3 F 57 17 134/85 97
05/09/25 07:00 05/09/25 07:00 05/09/25 07:00 05/09/25 07:00 05/09/25 07:00
Intake and Output
05/08/25 05/09/25 05/10/25
06:59 06:59 06:59
Intake Total 300 / 300 2079 / 2079
Output Total 1500 / 1500 1900 / 1900
Balance -1200 / -1200 180 / 180
Intake:
Oral fluids 2079
IV fluids (Total) 300 / 300
Normosol 300 / 300
Output:
Urine, Kim 1500 / 1500 1900 / 190
Laboratory Results
05/08/25 06:00
05/08/25 06:00
Physical Exam
-
General - no acute distress
Abdomen - soft, non-tender
Genitalia - kim in place
--- NOTE | 2025-05-09 11:16 | W.PN.UPDATE ---
Update Note
Progress Note Update
patient seen chart reviewed. spoke with nursing. noted patient w complicated yves's course. noted to have massive fecal impaction now disimpacted. he has hx of alzheimers and is taking namenda and aricept. episodes of agitation since his arrival
but seems to have benefitted from institution of zyprexa 2.5 mg bid and reduction of zoloft. it could also be that physically he is feeling better. when i saw him he was calmly just dozing in bed. he did not respond to my attempts to engage in any
conversation.asked nursing to monitor bowel movements. my only concern with zyprexa is constipation from its anticholinergicity. zoloft on the other hand can contribute to loose stools. it is possible he will not need zyprexa once he stabilizers
post impaction/crohns flare. going back to rexulti if it helped (took it as out pt ) could also be an option. will look in on him tomorrow
--- NOTE | 2025-05-09 12:14 | VNURNOTE ---
Home Health Liaison spoke with patient's spouse Elissa to discuss [facility] nurse/therapy, visits, schedule and homebound status. Explained that visits at home would be 2-3 x per week to assess and teach medical management and that [facility] will contact them
for start of care in 1-2 days after discharge from . Spouse firmly stated twice that she would be unable to take patient home if he needed a kim upon DC. Verbalized understanding and emotional support provided. Offered to send her list of CG/
companions. She declined.
Spouse not agreeable to VN as of now. GENIA Chavarria updated.
[facility] will continue to follow for final DC dispo
[2025-05-09 15:00] VITALS: BP 130/79
--- NOTE | 2025-05-09 15:15 | CM ---
patient seen at bedside
Spoke with Ely who will be in tomorrow
per note remove kim tomorrow for TOV
will discuss plan further - states cannot take him home with kim
PLAN: tbd, GENIA to follow hospital progress for needs
--- NOTE | 2025-05-09 15:36 | W.PN.HOSP.TC ---
Today's Communication/Plan
-
Assessment / Plan
Assessment / Plan
General: No Apparent Distress, Comfortable
HEENT: NormoCephalic, Moist mucous membranes, Atraumatic
Respiratory: Clear and Non Labored Respirations
Cardiac: S1/S2 and Regular Rhythm; No Rub or Gallop
GI: Soft, Non Tender, Non Distended and Normal Bowel Sounds
Musculoskeletal: No Edema, no deformity
: Kim in place draining clear yellow urine
Neuro: Somnolent but arousable, disoriented
Psych: Calm, lacks insight, currently without agitation
60-year-old male past medical history of Alzheimer's dementia, Crohn's disease presenting with rectal bleeding. His reports she has a history of Crohn's disease and takes cholestyramine for loose stools.
CT A/P
IMPRESSION:
Large volume rectal stool, mildly distending the rectum. Concern for mild stercoral colitis.
Small bilateral fat only containing inguinal hernias, left larger than right.
Prior right sided intestinal surgery, nonobstructed. Cannot exclude some mild thickening of the wall of the distal ileum such as Inflammatory bowel disease , just proximal to the anastomosis.
Bilateral renal simple cysts. Retrograde renal excretion.
Cholelithiasis.
PLAN:
# Rectal bleeding secondary to Crohn's flare/stercoral colitis
# Crohn's disease complicated by bowel perforation status post bowel resection
- CT abdomen pelvis shows large volume rectal stool, mildly distending the rectum, concern for mild stercoral colitis, cannot exclude some mild thickening of the wall of the distal ileum
- Manually disimpacted in the OR by Dr. Goldman (urology) during Kim catheter placement, enema given after procedure
- Continue bowel regimen, holding cholestyramine for now, low residue diet
- Appreciate further guidance from GI
Urinary Retention
-unsuccessful attempt x 3 for straight cath, seen by Urology and unable to place catheter at bedside, Kim was easily able to be placed in the OR once patient was calm
- Urinary retention likely exacerbated by severe constipation which has since been addressed
- Continue Flomax
- Plan for voiding trial Thursday morning, if unsuccessful will undergo TURP, not on blood thinners
Alzheimer's dementia
- Continue SSRI
- seroquel hs - has been on for a while, currently holding and started on scheduled olanzapine 2.5 mg twice daily with an additional 2.5 mg twice daily for acute agitation per psychiatry recommendations
- will need to control agitation so does not rip out kim
DNR/DNI
DVT prophylaxis�SCDs
Low residue diet
Anticipated Discharge: 24 - 48 hours
Subjective/Interval History
-
Date of Service: May 09, 2025
Patient was seen and examined at bedside this morning. Comfortable, no acute distress. Kim in place draining clear yellow urine.
Objective Data
-
Vital Signs:
Vital Signs
Temp Pulse Resp BP Pulse Ox
98.5 F 118 17 130/79 97
05/09/25 15:00 05/09/25 15:00 05/09/25 15:00 05/09/25 15:00 05/09/25 15:00
I&O
05/08/25 05/09/25 05/10/25
06:59 06:59 06:59
Intake Total 300 / 300 2079 / 2079
Output Total 1500 / 1500 1899 / 190
Balance -1200 / -1200 180 / 180
Review of Systems
-
Unable to obtain full review of systems at this time due to: Dementia
Physical Exam
-
General: No Apparent Distress
[2025-05-09] MEDS: MIRALAX PO (19:07)
[2025-05-09] MEDS: ARICEPT 10 MG PO (21:16)
[2025-05-09 23:05] VITALS: BP 123/75
--- NOTE | 2025-05-10 04:32 | PTCARENOTE ---
Kim removed at 0400 per order. 600mls of clear yellow urine out in Kim bag. b/l mitts removed since kim removed. 1:1 present in room and bed alarm in place. Plan of care ongoing.
--- NOTE | 2025-05-10 05:18 | DOWNTIME ---
Addendum entered by Jeremy Wilde RN 05/10/25 14:11:
Correction to downtime 05/10/2025 from 0100 to 05/10/25 at 0415.
Original Note:
There was a [employer] Downtime on 05/09/2025 from 0100 to 05/10/2025 at 0415. Downtime documentation of patient's care, including medication administrations, has been reconciled in the electronic record per guidelines. Refer to the
patient's paper chart under the miscellaneous tab to see printed paper medication records and downtime forms.
[2025-05-10 07:00] VITALS: BP 120/81
--- NOTE | 2025-05-10 07:44 | W.PN.URO.CBU ---
Today's Communication / Plan
-
trial of void
Assessment / Plan
-
Urinary retention- multifactorial- prob meds/constipation and mild BPH
kim difficulty was not anatomic- asleep cath placed easily
very difficult situation due to pt's dementia
VERY DIFFICULT SITUATION DUE TO PT'S DEMENTIA
there is no way a kim or even sp tube can be managed out outpt- and pt not a candidate for cic as he could not be cath'd at bedside
reviewed with med team and
kim out today for TOV
if unsucessful- TURP tomorrow with 1:1 nursing during recovery
Diagnosis
-
Date of Service: May 10, 2025
-
Patient Diagnosis:
dementia
constipation
urinary retention with difficult kim due to pt's level of cooperation s/pp OR cysto/kim placement
Subjective
-
pt asleep
kim out
ucx was negative
Objective
-
Vital Signs
Temp Pulse Resp BP Pulse Ox
98.7 F 58 17 120/81 98
05/10/25 07:00 05/10/25 07:00 05/10/25 07:00 05/10/25 07:00 05/10/25 07:00
Intake and Output
05/09/25 05/10/25 05/11/25
06:59 06:59 06:59
Intake Total 2079 300 / 300
Output Total 1899 1200 / 1200
Balance 180 / 180 -900 / -900
Intake:
Oral fluids 2079 300 / 300
Output:
Urine, Kim 1899 800 / 800
Urine, Voided 400 / 400
Other:
Number of unmeasured liquid
stools
Rectum 2
Laboratory Results
05/08/25 06:00
05/08/25 06:00
Physical Exam
-
General - no acute distress
[2025-05-10] MEDS: ZOLOFT 50 MG PO (08:18)
[2025-05-10] MEDS: MIRALAX 17 GRAMS PO ×2 (08:18→20:14)
[2025-05-10] MEDS: FLOMAX 0.8 MG PO (08:18)
[2025-05-10] MEDS: ZYPREXA 2.5 MG PO ×2 (08:21→20:13)
[2025-05-10] MEDS: NAMENDA 10 MG PO ×2 (08:21→20:13)
--- NOTE | 2025-05-10 12:57 | W.PN.HOSP.TC ---
Today's Communication/Plan
-
Assessment / Plan
Assessment / Plan
General: No Apparent Distress, Comfortable
HEENT: NormoCephalic, Moist mucous membranes, Atraumatic
Respiratory: Clear and Non Labored Respirations
Cardiac: S1/S2 and Regular Rhythm; No Rub or Gallop
GI: Soft, Non Tender, Non Distended and Normal Bowel Sounds
Musculoskeletal: No Edema, no deformity
: Kim removed for voiding trial
Neuro: Somnolent but arousable, disoriented
Psych: Calm, lacks insight, currently without agitation
60-year-old male past medical history of Alzheimer's dementia, Crohn's disease presenting with rectal bleeding. His reports she has a history of Crohn's disease and takes cholestyramine for loose stools.
CT A/P
IMPRESSION:
Large volume rectal stool, mildly distending the rectum. Concern for mild stercoral colitis.
Small bilateral fat only containing inguinal hernias, left larger than right.
Prior right sided intestinal surgery, nonobstructed. Cannot exclude some mild thickening of the wall of the distal ileum such as Inflammatory bowel disease , just proximal to the anastomosis.
Bilateral renal simple cysts. Retrograde renal excretion.
Cholelithiasis.
PLAN:
# Rectal bleeding secondary to Crohn's flare/stercoral colitis
# Crohn's disease complicated by bowel perforation status post bowel resection
- CT abdomen pelvis shows large volume rectal stool, mildly distending the rectum, concern for mild stercoral colitis, cannot exclude some mild thickening of the wall of the distal ileum
- Manually disimpacted in the OR by Dr. Goldman (urology) during Kim catheter placement, enema given after procedure
- Continue bowel regimen, holding cholestyramine for now, low residue diet
- Appreciate further guidance from GI
Urinary Retention
- unsuccessful attempt x 3 for straight cath, seen by Urology and unable to place catheter at bedside, Kim was easily able to be placed in the OR once patient was calm
- Urinary retention likely exacerbated by severe constipation which has since been addressed
- Continue Flomax
- Voiding trial today, will monitor bladder scans, if unsuccessful will undergo TURP, not on blood thinners
- If able to void then plan is for discharge to home in the next 24 hours
Alzheimer's dementia
- Continue SSRI
- seroquel hs - has been on for a while, currently holding and started on scheduled olanzapine 2.5 mg twice daily with an additional 2.5 mg twice daily for acute agitation per psychiatry recommendations
- will need to control agitation so does not rip out kim
DNR/DNI
DVT prophylaxis�SCDs
Low residue diet
Anticipated Discharge: 24 - 48 hours
Subjective/Interval History
-
Date of Service: May 10, 2025
Patient was seen and examined at bedside this morning. Somnolent but easily arousable. and one-to-one supervision present. Currently undergoing voiding trial.
Objective Data
-
Vital Signs:
Vital Signs
Temp Pulse Resp BP Pulse Ox
98.7 F 58 17 120/81 98
05/10/25 07:00 05/10/25 07:00 05/10/25 07:00 05/10/25 07:00 05/10/25 08:30
I&O
05/09/25 05/10/25 05/11/25
06:59 06:59 06:59
Intake Total 2079 / 2079 300 / 300
Output Total 1900 / 1900 1200 / 1200
Balance 180 / 180 -900 / -900
Review of Systems
-
Unable to obtain full review of systems at this time due to: Dementia
Physical Exam
-
General: No Apparent Distress
--- NOTE | 2025-05-10 13:11 | W.PN.UPDATE ---
Addendum entered and electronically signed by Kate Rivas MD 05/10/25 13:24:
at 's request called dr philip and left message with my cell phone number.
Original Note:
Update Note
Progress Note Update
patient seen chart reviewed. case discussed with nursing. at bedside. the patient has been largely calm and cooperative. he is in the process of a voiding trial and if it is unsuccessful he will undergo turp tomorrow. he is taking zyprexa
2.5 mg bid and zoloft 50 mg daily as well as namenda and aricept. he has not required prn for agitation since 05.08. he is no longer on seroquel at . had a lot of questions about whether he will be able to come home. 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 i did reassure her that any decision re disposition would be hers. if she could not care for him then other arrangements
would need to be sought but psych would not necessarily be the discipline to advise her. there are many issues. the input of PT OT urology medicine would also be important. she also was concerned should her return home that his treating
neurologist dr paul philip would not be happy with med changes and she did not want to 'be the middle man' to report to him changes we had made. it was as though she were fearful dr philip would be angry that med changes had been made. i did
tell her i would call him but also reassured her that med changes are often made when patients are hospitalized and at [place] 'medication reconciliation 'takes place and a new list is drawn up which would be sent with the patient at [place]. i am not sure
she was reassured. will check in with patient tomorrow.
--- NOTE | 2025-05-10 14:25 | CM ---
Met with patient
kim removed, on void trial today
per note if unsucessful- TURP tomorrow with 1:1 nursing during recovery
states that she cannot take patient home with kim
discussed barriers regarding SNF should that be recommended, since the patient has been on a 1:1
PT/OT evals would be important-tt hospitalist
additional resources for private cg given to
PLAN: TBD, CM continue to follow for dispo planning
[2025-05-10 15:00] VITALS: BP 115/72
--- NOTE | 2025-05-10 17:09 | W.PN.UPDATE ---
Update Note
Progress Note Update
pt has not voided today
pvr around 400c
abd soft/pt comfortable
reviewed with - try to get up to toilet today and void
plan for TURP tomorrow unless emptying
risks,benefits, alternatives and disabilities of surgery and then not being able to void after surgery reviewed
she consents
will leave kim out tonight as it would likely require anesthesia to replace
--- NOTE | 2025-05-10 19:38 | PTCARENOTE ---
Addendum entered by Radha Bolanos RN 05/11/25 06:21:
@0600, pt urinated large amount of clear yellow urine. PVR 212mls.
Original Note:
Pt taken to the bathroom by RN and tech. Pt refusing to use urinal or hat in toilet. Pt voided a very large amount of clear yellow urine. PVR 240mls. Dr. Goldman notified, instructed to toilet pt in a few hours and in the morning and to obtain PVR in
am. 1:1 in room. Plan of care ongoing.
[2025-05-10] MEDS: ARICEPT 10 MG PO (21:06)
[2025-05-10] MEDS: ZYPREXA 2.5 MG IM ×2 (23:03→23:50)
[2025-05-10] MEDS: STERILE WATER FOR INJECTION 2.1 ML IM ×2 (23:10→23:55)
--- NOTE | 2025-05-10 23:56 | PTCARENOTE ---
Pt agitated, attempting to get oob to leave room, and unable to redirect. Pt getting frustrated w/ staff. hands balled into fists and pushing staff away. Pt repeatedly stating 'I need to leave' and 'I am going home'. PRN Zyprexa 2.5mg IM given. No
code purple called but security asked to come up to help get pt back into bed. Pt still uncooperative. [employer] notified, 4 point soft limb restraints ordered and applied. Pt still very agitated w/ restraints, attempting to rip them off and sit up. Pt
stated 'I want to hurt those big guys' when talking about security and asked staff to call the crossword puzzle maker. [employer] notified and 1x dose of Zyprexa 2.5mg IM ordered and given. 1:1 present in room. Plan of care ongoing.
[2025-05-11 04:00] VITALS: BP 124/76
[2025-05-11 07:00] VITALS: BP 119/81
--- NOTE | 2025-05-11 08:13 | W.PN.UPDATE ---
Update Note
Progress Note Update
pt able to void- but still with climbing pvr's
will proceed with button TUR today
[2025-05-11] MEDS: ZYPREXA 2.5 MG IM ×2 (08:37→20:50)
[2025-05-11] MEDS: STERILE WATER FOR INJECTION 2.1 ML IM ×2 (08:38→20:50)
[2025-05-11] MEDS: MIRALAX PO (09:06)
[2025-05-11] MEDS: ZOLOFT PO (09:06)
[2025-05-11] MEDS: FLOMAX PO (09:06)
[2025-05-11] MEDS: NAMENDA PO (09:06)
[2025-05-11] MEDS: ZYPREXA PO (09:08)
--- NOTE | 2025-05-11 09:21 | W.PN.URO.CBU ---
Today's Communication / Plan
-
surgery cancelled
timed voiding
Assessment / Plan
-
Urinary retention- multifactorial- prob meds/constipation and mild BPH
kim difficulty was not anatomic- asleep cath placed easily
very difficult situation due to pt's dementia
VERY DIFFICULT SITUATION DUE TO PT'S DEMENTIA
there is no way a kim or even sp tube can be managed out outpt- and pt not a candidate for cic as he could not be cath'd at bedside
pt is urinating and would accept in general residuals under 300cc
for now- i do not feel it is safe to operate on pt as he is clinically safe and stable from gu standpoint
reviewed with and med team
will pursue timed void/flomax and observation for now
if develops retention- would try to place bedisde kim- then redsicss options of TURP
Diagnosis
-
Date of Service: May 11, 2025
-
Patient Diagnosis:
dementia
constipation
urinary retention with difficult kim due to pt's level of cooperation s/pp OR cysto/kim placement
Subjective
-
pt did void last night when taken to bathroom with pvr's under 250cc
debated options this am- decided to go ahead an proceed with button turp
however- pt became agitated- ran out of room despite 1;1 nursing- code purple called
Objective
-
Vital Signs
Temp Pulse Resp BP Pulse Ox
98.6 F 58 16 119/81 96
05/11/25 07:00 05/11/25 07:00 05/11/25 07:00 05/11/25 07:00 05/11/25 07:00
Intake and Output
05/10/25 05/11/25 05/12/25
06:59 06:59 06:59
Intake Total 300 / 300 440 / 440
Output Total 1200 / 1200
Balance -900 / -900 440 / 440
Intake:
Oral fluids 300 / 300 440 / 440
Output:
Urine, Kim 800 / 800
Urine, Voided 400 / 400
Other:
Number of approximated MODERATE 1
amounts of urine
Number of approximated LARGE 2
amounts of urine
Number of unmeasured liquid
stools
Rectum 2
Laboratory Results
05/08/25 06:00
05/08/25 06:00
Physical Exam
-
General - confused/agitated
Abdomen - soft, non-tender
[2025-05-11] MEDS: FLOMAX 0.8 MG PO (10:09)
[2025-05-11] MEDS: ZOLOFT 50 MG PO (10:09)
[2025-05-11] MEDS: NAMENDA 10 MG PO ×2 (10:10→20:09)
--- NOTE | 2025-05-11 11:19 | W.PN.UPDATE ---
Update Note
Progress Note Update
patient seen chart reviewed. spoke with nursing dr pollard and case mgt. the patient currently is calm having received a prn of im zyprexa. spoke w at bedside. explained to her that i had called dr philip and spoken to his verification specialist and left
my cell. i have not heard back from him yet. was clearly not happy with this i explained again that it is not unusual for meds to be changed when patient is in the hospital but she seems to feel that dr philip will not be happy with the
change and she and her will suffer. i will try and call him again today to apprise. there is of course more going on that dementia. urinary and gi issues remain and turp placed on hold bc of code purple this am. since he ic currently calm
will not make any changes in meds .i am reluctant to inc zyprexa given propensity for anticholinergic side effects. dr rose will see patient adn reassess in am.
--- NOTE | 2025-05-11 14:02 | PTCARENOTE ---
Sagar fan note: This AM pt was scheduled to go to OR for TURP. Prior to this, he was sleeping in bed, without restraints with 1:1 present. They had been removed prior by nightshift and he was tolerating it well. Around 0800, pt started to state
that he wanted to leave and become agitated with 1:1 and staff. At this point, report was called to OR and transport was on their way to get him. Pt repeatedly would stand up from bed and walk towards the door of his room. He made it all the way
down the pal. Sagar fan was called. Security present, attempting to have pt sit down and redirect. Eventually staff convinced pt to sit in a wheelchair and he was wheeled back to his room. It was at this time when IM Zyprexa dose was
administered. Pt was then transferred to bed and came to bedside. aware. OR cancelled and plan of care ongoing.
[2025-05-11 14:41] VITALS: BMI 25.0
--- NOTE | 2025-05-11 14:53 | CM ---
Met with patient E[place]
patient TURP cancelled today
timed voiding
discussed plan - PT/OT ordered -awiat evals
states unable to manage at home currently
discussed SNF/LTC rehabs - again stated to her facilities would not accept unless off 1:1/restraints for 24hrs, behaviors also a barrier
discussed auth process as well ([employer]), rec to tour if possible, as well medicare.gov care compare
Resources also given to of memory care units, Customer Service Driver (advocate to assist), she declined [facility] resource
Offered email for for virtual support group held via zoom which she declined currently
PLAN: SNF/LTC, pending acceptance/bed avail, ins auth, when medically stable
[2025-05-11 15:00] VITALS: BP 122/65
--- NOTE | 2025-05-11 15:36 | W.PN.HOSP.TC ---
Today's Communication/Plan
-
Assessment / Plan
Assessment / Plan
General: No Apparent Distress, Comfortable
HEENT: NormoCephalic, Moist mucous membranes, Atraumatic
Respiratory: Clear and Non Labored Respirations
Cardiac: S1/S2 and Regular Rhythm; No Rub or Gallop
GI: Soft, Non Tender, Non Distended and Normal Bowel Sounds
Musculoskeletal: No Edema, no deformity
: Neves removed for voiding trial
Neuro: Somnolent but arousable, disoriented
Psych: Calm, lacks insight, currently without agitation
60-year-old male past medical history of Alzheimer's dementia, Crohn's disease presenting with rectal bleeding. His reports she has a history of Crohn's disease and takes cholestyramine for loose stools.
CT A/P
IMPRESSION:
Large volume rectal stool, mildly distending the rectum. Concern for mild stercoral colitis.
Small bilateral fat only containing inguinal hernias, left larger than right.
Prior right sided intestinal surgery, nonobstructed. Cannot exclude some mild thickening of the wall of the distal ileum such as Inflammatory bowel disease , just proximal to the anastomosis.
Bilateral renal simple cysts. Retrograde renal excretion.
Cholelithiasis.
PLAN:
# Rectal bleeding secondary to Crohn's flare/stercoral colitis
# Crohn's disease complicated by bowel perforation status post bowel resection
- CT abdomen pelvis showed large volume rectal stool, mildly distending the rectum, concern for mild stercoral colitis, cannot exclude some mild thickening of the wall of the distal ileum
- Manually disimpacted in the OR by Dr. Goldman (urology) during Neves catheter placement with sedation, enemas given after procedure
- Continue bowel regimen, holding cholestyramine for now, low residue diet
Urinary Retention
- unsuccessful attempt x 3 for straight cath, seen by Urology and unable to place catheter at bedside, Neves was easily able to be placed in the OR once patient was calm
- Urinary retention likely exacerbated by severe constipation which has since been addressed
- Continue Flomax
- Unable to be brought to the OR this morning due to acute agitation
- Neves catheter remains out with scheduled toileting and measurement of postvoid residuals
- Will try to avoid replacing Neves catheter if at all possible, otherwise will need to be kept sedated so that he does not pull the Neves catheter out while awaiting TURP which could be done next week at the earliest
Alzheimer's dementia
- Continue SSRI
- seroquel hs - has been on for a while, currently holding and started on scheduled olanzapine 2.5 mg twice daily with an additional 2.5 mg twice daily for acute agitation per psychiatry recommendations
- will need to control agitation if Neves needs to be replaced
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
DNR/DNI
DVT prophylaxis�SCDs
Low residue diet
Anticipated Discharge: > 48 hours
Subjective/Interval History
-
Date of Service: May 11, 2025
Patient was seen and examined at bedside this morning. Unable to be brought to the OR for TURP due to acute agitation. Neves remains out. Monitoring postvoid residuals.
Objective Data
-
Vital Signs:
Vital Signs
Temp Pulse Resp BP Pulse Ox
98.9 F 76 16 122/65 95
05/11/25 15:00 05/11/25 15:00 05/11/25 15:00 05/11/25 15:00 05/11/25 15:00
I&O
05/10/25 05/11/25 05/12/25
06:59 06:59 06:59
Intake Total 300 / 300 440 / 440
Output Total 1200 / 1200
Balance -900 / -900 440 / 440
Review of Systems
-
Unable to obtain full review of systems at this time due to: Dementia
Physical Exam
-
General: No Apparent Distress
[2025-05-11 15:42] VITALS: BP 122/65; PULSE 76; O2SAT 95
[2025-05-11 15:48] VITALS: BP 122/65; PULSE 76; O2SAT 95
--- NOTE | 2025-05-11 16:43 | W.PN.UPDATE ---
Update Note
Progress Note Update
dr philip returned my call . i was able to share with him mr garcia's hx thus far at and apprise him of the changes we had made in his medications vis a vis psychiatry. he will call the patient's to talk w her and reassure her that he
will continue to care for her at pr and reassess current and future meds.
[2025-05-11] MEDS: ARICEPT 10 MG PO (20:09)
[2025-05-11] MEDS: ZYPREXA 2.5 MG PO (20:09)
[2025-05-11] MEDS: MIRALAX 17 GRAMS PO (20:10)
--- NOTE | 2025-05-11 21:30 | W.PN.UPDATE ---
Update Note
Progress Note Update
Code purple
Patient is agitated, out of the bed trying to get out of the room, not following the staff direction. Patient has PRN scheduled for agitation.
The staff needed assistance as the patient started to push the staff. Soft restraint applied for the patient and staff safety and PRN given as needed.
--- NOTE | 2025-05-11 23:23 | PTCARENOTE ---
Sagar fan called for pt becoming extremely agitated and pushing staff. Pt had reg scheduled anxiety meds and given PRN dose of Zyprexa. Pt placed in 4 pt restraints as ordered by the SENIOR SOFTWARE QUALITY ENGINEER reconciler. Pt continues to have a 1:1 at the bedside. Pt now
calm in bed. No s/s of distress assessed. Will continue to monitor.
[2025-05-12] VITALS: BP 104/67
--- NOTE | 2025-05-12 07:27 | W.PN.URO.CBU ---
Today's Communication / Plan
-
track voiding
ok for discharge when medically stable
Assessment / Plan
-
Urinary retention- multifactorial- prob meds/constipation and mild BPH
kim difficulty was not anatomic- asleep cath placed easily
very difficult situation due to pt's dementia
VERY DIFFICULT SITUATION DUE TO PT'S DEMENTIA
there is no way a kim or even sp tube can be managed out outpt- and pt not a candidate for cic as he could not be cath'd at bedside
pt is urinating and would accept in general residuals under 300cc- this appears to be acheived
for now- i do not feel it is safe to operate on pt as he is clinically safe and stable from gu standpoint
continue timed voiding and flomax 0.8mg and bowel regimen
stable from gu standpoint for discharge with outpt f/u
Diagnosis
-
Date of Service: May 12, 2025
-
Patient Diagnosis:
dementia
constipation
urinary retention with difficult kim due to pt's level of cooperation s/pp OR cysto/kim placement
Subjective
-
pt has been voiding
generally pvr's under 300cc
again had code purple called early this am- currenlty asleep
Objective
-
Vital Signs
Temp Pulse Resp BP Pulse Ox
97.6 F 66 16 104/67 95
05/12/25 00:00 05/12/25 00:00 05/12/25 00:00 05/12/25 00:00 05/12/25 00:00
Intake and Output
05/11/25 05/12/25 05/13/25
06:59 06:59 06:59
Intake Total 440 / 440 480 / 480
Output Total 620 / 620
Balance 440 / 440 -140 / -140
Intake:
Oral fluids 440 / 440 480 / 480
Output:
Urine, Voided 620 / 620
Other:
Number of approximated MODERATE 1 1 2
amounts of urine
Number of approximated LARGE 2
amounts of urine
Number of unmeasured liquid
stools
Rectum 3 3
Laboratory Results
05/08/25 06:00
05/08/25 06:00
Physical Exam
-
General - asleep/sedated- NAD
Abdomen - soft, non-tender
[2025-05-12 07:43] VITALS: BP 123/77
[2025-05-12] MEDS: FLOMAX 0.8 MG PO (10:29)
[2025-05-12] MEDS: ZOLOFT 50 MG PO (10:29)
[2025-05-12] MEDS: ZYPREXA 2.5 MG PO ×2 (10:30→19:46)
[2025-05-12] MEDS: NAMENDA 10 MG PO ×2 (10:32→19:46)
[2025-05-12] MEDS: MIRALAX 17 GRAMS PO (10:32)
--- NOTE | 2025-05-12 14:30 | W.PN.HOSP.TC ---
Today's Communication/Plan
-
Assessment / Plan
Assessment / Plan
General: No Apparent Distress, Comfortable
HEENT: NormoCephalic, Moist mucous membranes, Atraumatic
Respiratory: Clear and Non Labored Respirations
Cardiac: S1/S2 and Regular Rhythm; No Rub or Gallop
GI: Soft, Non Tender, Non Distended and Normal Bowel Sounds
Musculoskeletal: No Edema, no deformity
: Neves removed, voiding spontaneously
Neuro: Somnolent but arousable, disoriented
Psych: Calm, lacks insight, currently without agitation
60-year-old male past medical history of Alzheimer's dementia, Crohn's disease presenting with rectal bleeding. His reports she has a history of Crohn's disease and takes cholestyramine for loose stools.
CT A/P
IMPRESSION:
Large volume rectal stool, mildly distending the rectum. Concern for mild stercoral colitis.
Small bilateral fat only containing inguinal hernias, left larger than right.
Prior right sided intestinal surgery, nonobstructed. Cannot exclude some mild thickening of the wall of the distal ileum such as Inflammatory bowel disease , just proximal to the anastomosis.
Bilateral renal simple cysts. Retrograde renal excretion.
Cholelithiasis.
PLAN:
Urinary Retention
- unsuccessful attempt x 3 for straight cath, seen by Urology and unable to place catheter at bedside, Neves was easily able to be placed in the OR once patient was calm
- Urinary retention likely exacerbated by severe constipation which has since been addressed
- Continue Flomax
- Unable to be brought to the OR this morning due to acute agitation
- Neves catheter remains out with scheduled toileting and measurement of postvoid residuals, appears to be emptying bladder adequately
- Anticipate discharge to home with home care in the next 24 hours
Alzheimer's dementia
- Continue home sertraline
- seroquel hs - has been on for a while, currently holding and started on scheduled olanzapine 2.5 mg twice daily with an additional 2.5 mg twice daily for acute agitation per psychiatry recommendations
- Patient's would like him to return to home with home care if at all possible at least for now if she explores other options, would include liquid Ativan as needed for acute agitation in his home regimen
# Rectal bleeding secondary to Crohn's flare/stercoral colitis
# Crohn's disease complicated by bowel perforation status post bowel resection
- CT abdomen pelvis showed large volume rectal stool, mildly distending the rectum, concern for mild stercoral colitis, cannot exclude some mild thickening of the wall of the distal ileum
- Manually disimpacted in the OR by Dr. Goldman (urology) during Neves catheter placement with sedation, enemas given after procedure
- Continue bowel regimen, holding cholestyramine for now, low residue diet
- Had elevated bilirubin which is mostly indirect, suspect due to Gilbert's disease, do not suspect obstruction, can be monitored periodically
DNR/DNI
DVT prophylaxis�SCDs
Low residue diet
Anticipated Discharge: 24 - 48 hours
Subjective/Interval History
-
Date of Service: May 12, 2025
Patient was seen and examined at bedside this morning. Had a code purple overnight for acute agitation again. Soft restraints were applied after he was pushing some of the staff. As needed medications given.
Objective Data
-
Vital Signs:
Vital Signs
Temp Pulse Resp BP Pulse Ox
97.9 F 63 16 123/77 100
05/12/25 07:43 05/12/25 07:43 05/12/25 07:43 05/12/25 07:43 05/12/25 07:43
I&O
05/11/25 05/12/25 05/13/25
06:59 06:59 06:59
Intake Total 440 / 440 480 / 480
Output Total 620 / 620
Balance 440 / 440 -140 / -140
Review of Systems
-
Unable to obtain full review of systems at this time due to: Dementia
Physical Exam
-
General: No Apparent Distress
--- NOTE | 2025-05-12 15:26 | W.PN.UPDATE ---
Update Note
Progress Note Update
Pt seen, reviewed with nursing staff, discussed with pt's at the bedside. is asking about rapidly dissolving medication options. Pt is calm unless there is activity around his room. Neves catheter is out and reports pt is voiding
okay, with seemingly normal output. Pt becomes too agitated for any bedside procedure. Potential side effects of Sertraline and Olanzapine discussed with pt's , including possibility of constipation/urinary retention. Pt is taking po
medications. has increasing concerns about managing pt at home, is looking for medication solutions. She does state she is planning to bring in caregiver, hopes they will be able to take care of showering the pt.
Imp: Dementia, advanced, with intermittent agitation
Rec: continue Zyprexa 2.5 mg BID, Sertraline 50 mg QD. Continue Donepezil, Memantine. Will add prn Ativan
Will follow
[2025-05-12 15:29] VITALS: BP 119/74
--- NOTE | 2025-05-12 16:13 | CM ---
Met with patient
discussed plan with taking home, Ativan to be ordered for acute agitation
PT rec SNF vs. home with support
was working with daughterly companions
CM consult entered for [facility]N
referral placed in [facility]
PLAN: home with [facility], caregiver assistance
--- NOTE | 2025-05-12 16:31 | VNURNOTE ---
Met with spouse Elissa and pt at bedside. Patient noted to be restless in bed. Explained to spouse [facility] services: short-term, intermittent, skilled, services. Explained that home PT was recommended. Spouse was shocked at that recommendation.
She was a 'blank slate' and requested liaison to explain what each discipline could do at home. Specifically wanted to know what PT and OT could provide at home. All questions answered. Explained that services would only be provided at home and
could not be provided at Adult Day Care. Spouse agreeable to referral[facility].
[2025-05-12] MEDS: MIRALAX PO (19:30)
[2025-05-12] MEDS: ARICEPT 10 MG PO (19:46)
[2025-05-12 23:28] VITALS: BP 118/75
[2025-05-13 07:02] VITALS: BP 125/76
[2025-05-13] MEDS: MIRALAX 17 GRAMS PO (08:43)
[2025-05-13] MEDS: ZOLOFT 50 MG PO (08:44)
[2025-05-13] MEDS: ZYPREXA 2.5 MG PO (08:44)
[2025-05-13] MEDS: NAMENDA 10 MG PO (08:44)
[2025-05-13] MEDS: FLOMAX 0.8 MG PO (08:44)
--- NOTE | 2025-05-13 10:37 | W.PN.URO.CBU ---
Today's Communication / Plan
-
no gu intervention
Assessment / Plan
-
Urinary retention- multifactorial- prob meds/constipation and mild BPH
kim difficulty was not anatomic- asleep cath placed easily
very difficult situation due to pt's dementia
VERY DIFFICULT SITUATION DUE TO PT'S DEMENTIA
there is no way a kim or even sp tube can be managed out outpt- and pt not a candidate for cic as he could not be cath'd at bedside
pt is urinating and would accept in general residuals under 300cc- this appears to be acheived
for now- i do not feel it is safe to operate on pt as he is clinically safe and stable from gu standpoint
continue timed voiding and flomax 0.8mg and bowel regimen
stable from gu standpoint for discharge with outpt f/u
Diagnosis
-
Date of Service: May 13, 2025
-
Patient Diagnosis:
Post Op Day:
Patient Diagnosis:
dementia
constipation
urinary retention with difficult kim due to pt's level of cooperation s/pp OR cysto/kim placement
Subjective
-
staff notes adequate voiding
Objective
-
Vital Signs
Temp Pulse Resp BP Pulse Ox
97.8 F 60 14 125/76 97
05/13/25 07:02 05/13/25 07:02 05/13/25 07:02 05/13/25 07:02 05/13/25 07:02
Intake and Output
05/12/25 05/13/25 05/14/25
06:59 06:59 06:59
Intake Total 480 / 480 540 / 540
Output Total 620 / 620
Balance -140 / -140 540 / 540
Intake:
Oral fluids 480 / 480 540 / 540
Output:
Urine, Voided 620 / 620
Other:
Number of approximated SMALL 1
amounts of urine
Number of approximated MODERATE 1 2
amounts of urine
Number of approximated LARGE 3
amounts of urine
Number of unmeasured liquid
stools
Rectum 3 2
Laboratory Results
05/08/25 06:00
05/08/25 06:00
Review of Systems
-
Abdomen/GI: Abdominal Pain and Black Stools
: No Symptoms
Physical Exam
-
General - well developed, well nourished, no acute distress
Chest - clear bilaterally
Abdomen - soft, non-tender, positive bowel sounds, no CVAT, no incisional pain or distention
Genitalia - normal
Rectal - normal
Skin - warm & dry with no rash
Neuro - AOx3, no motor deficits
Extremities - no clubbing, no cyanosis, no edema
Incision - clean, dry
Dressing - clean, dry, intact
Care Review
Data Reviewed
Discussed with: Nursing and Family
--- NOTE | 2025-05-13 11:23 | CM ---
Patient seen at bedside on with 1:1 present and . Patient states that she has been in contact with a place for mom and they only referred her to places at a distance. Patient plan is to take patient home with Daughterly
companions to start working with her on and she will start with [facility] on thursday. Patient son to come home tomorrow to assist. Patient indicated that she did not feel [employer] would be helpful as they did not qualify for
MA at this time. CM encouraged her to reach out to review options they may qualify for. Patient is for discharge home today per physician. plan is to transport patient home via private car. CM will continue to follow for discharge planning
needs.
Plan; home with daughterly companions and adult day care starting thu.
--- NOTE | 2025-05-13 11:43 | W.DCSUMMARY ---
Discharge Summary
Discharge Data
Date of Admission: 05/06/25
Date of Discharge: 05/13/25
Total time spent discharging patient (in min): 45
-
Pending Results: No
Hospital Course
Mr. Breaux is a 60-year-old male with a medical history of early onset Alzheimer's dementia and Crohn's disease who presented with rectal bleeding. He was found to have a significant fecal impaction with associated acute urinary retention.
Neves catheter was unable to be placed at bedside due to agitation. Subsequently he was brought to the OR with urology for catheter placement under sedation which was placed easily in that setting. His rectum was also manually disimpacted while
under sedation with a large amount of stool removed. He has been continued on a low residue diet and aggressive bowel regimen since that time. His Neves catheter was removed and he was able to void spontaneously with scheduled toileting and
minimal postvoid residuals. He will be continued on Flomax. He is a poor candidate for Neves catheter or suprapubic catheter placement considering his dementia with agitation which significantly increases the risks and dangers associated with
pulling out an indwelling catheter. His psychiatric regimen was adjusted with guidance from the inpatient psychiatry team. As needed liquid oral Ativan will be included in his home medication regimen to be used as needed for acute agitation. His
is his primary residential substance abuse counselor and is in the process of setting up additional home health care while she explores long-term placement options. At time of hospital discharge she was medically stable.
General: No Apparent Distress, Comfortable
HEENT: NormoCephalic, Moist mucous membranes, Atraumatic
Respiratory: Clear and Non Labored Respirations
Cardiac: S1/S2 and Regular Rhythm; No Rub or Gallop
GI: Soft, Non Tender, Non Distended and Normal Bowel Sounds
Musculoskeletal: No Edema, no deformity
: Neves removed, voiding spontaneously
Neuro: Somnolent but arousable, disoriented
Psych: Calm, lacks insight, currently without agitation
Discharge Plan
-
Patient Disposition: Home with Home Care
Discharge Diagnosis/Procedures: Acute urinary retention and fecal impaction
Diet: Low Residue
Activity: With assistance and As tolerated
Activity Restrictions/Additional Instructions:
Mr. Breaux is a 60-year-old male with a medical history of early onset Alzheimer's dementia and Crohn's disease who presented with rectal bleeding. He was found to have a significant fecal impaction with associated acute urinary retention.
Neves catheter was unable to be placed at bedside due to agitation. Subsequently he was brought to the OR with urology for catheter placement under sedation which was placed easily in that setting. His rectum was also manually disimpacted while
under sedation with a large amount of stool removed. He has been continued on a low residue diet and aggressive bowel regimen since that time. His Neves catheter was removed and he was able to void spontaneously with scheduled toileting and
minimal postvoid residuals. He will be continued on Flomax. He is a poor candidate for Neves catheter or suprapubic catheter placement considering his dementia with agitation which significantly increases the risks and dangers associated with
pulling out an indwelling catheter. His psychiatric regimen was adjusted with guidance from the inpatient psychiatry team. As needed liquid oral Ativan will be included in his home medication regimen to be used as needed for acute agitation. His
is his primary residential substance abuse counselor and is in the process of setting up additional home health care while she explores long-term placement options. At time of hospital discharge she was medically stable.
Referrals:
Carolyn Patrick PA-C [Family Provider, Family Practice]
Prescriptions:
New
lorazepam [Lorazepam Intensol] 2 mg/mL concentrate
1 mg PO TID PRN (Reason: agitation) Qty: 30 0RF
polyethylene glycol 3350 17 gram Powder In Packet
17 g PO BID 30 Days Qty: 30 0RF
Rx Instructions:
Hold for loose stools
olanzapine 2.5 mg Tablet
2.5 mg PO BID 30 Days Qty: 60 0RF
tamsulosin 0.4 mg Capsule
0.8 mg PO DAILY 90 Days Qty: 180 0RF
Continued
donepezil 10 mg Tablet
10 mg PO HS
sertraline 100 mg Tablet
100 mg PO DAILY
memantine 10 mg Tablet
10 mg PO BID
Held
cholestyramine 4 gram Powder
4 g PO DAILY
Hold Instructions: Use as needed for loose stools
Rexulti 4 mg Tablet
4 mg PO DAILY
Hold Instructions: Follow-up with primary neurologist regarding ongoing use of this medication
Discontinued
quetiapine 50 mg Tablet
50 mg PO HS
Discharge Orders:
Discharge Patient (As Directed); Ordered 05/13/25
Ordered By: Satish Plasecncia
Discharge Date and Time
Print Language: CHINESE
[2025-05-13 14:28] VITALS: BP 123/79
== END 2025-05-13 14:50 | disposition home health service (06) | DRG 386 ==
LOC: 3 WEST ACU 18:57
PROVIDERS: Student in an Organized Health Care Education/Training Program; ADMITTING PHYSICIAN Hospitalist; ATTENDING PHYSICIAN Internal Medicine; CONSULT PHYSICIAN Internal Medicine Gastroenterology; CONSULT PHYSICIAN Specialist; EMERGENCY PHYSICIAN Emergency Medicine; FAMILY PHYSICIAN Physician Assistant Medical
PROC: 0T7D8ZZ Dilation of Urethra, Via Natural or Artificial Opening Endoscopic (ICD-10-PCS; 2025-05-07)
DX: K50.911 Crohn's disease, unspecified, with rectal bleeding (principal); F02.811 Dementia in other diseases classified elsewhere, unspecified severity, with agitation; Z90.49 Acquired absence of other specified parts of digestive tract; K52.89 Other specified noninfective gastroenteritis and colitis; G30.0 Alzheimer's disease with early onset; Z66 Do not resuscitate; K56.41 Fecal impaction
CPT/HCPCS: 74018; 74177; 80048; 80053; 82248; 85025; 86850; 86900; 86901; 87045; 87046; 87077; 87086; 87427; 97163; 97167; 99284; J2358; Q9967